=== PATIENT | male | born 1995 | race Caucasian/White ===

== ENCOUNTER 2016-12-12 20:55 | Emergency (ER) | payer BC, MEDICAID, OTHER ==
--- NOTE | 2016-12-12 21:09 | EDM.PDOC ---
ED HPI GENERAL MEDICAL PROBLEM - General Chief Complaint: Back Pain or Injury Stated Complaint: CHEST PAIN/TROUBLE BREATHING Time Seen by Provider: 12/12/16 21:00 Source of Information: Reports: Patient History Limitations: Reports: No Limitations - History of Present Illness INITIAL COMMENTS - FREE TEXT/NARRATIVE: HISTORY AND PHYSICAL: History of present illness: [Patient comes to the emergency room complaining of left upper back pain which has been present for the past 5 days. His symptoms started as a feeling of tightness in his left upper back for a couple of days. Over the past few days the pain has gradually worsened but tonight the pain became severe. He has increased pain with taking a deep breath, coughing, sneezing. he tried Advil a few days ago which had provided some improvement in the tight feeling. He has not taken Advil in the past couple of days. Describes the pain as a sharp feeling on the left side of his upper back between scapula and spine and remains constant. He does hard manual labor on oil rigs. He initially attributed his pain to his work, at first. Has a history of cocaine use but has not used in over a year. Drinks alcohol very occasionally. He does not smoke but he chews tobacco. Patient's parents are living. his father's medical history is unknown to him. His mother has a brain condition which he states is not cancer. He does not know her diagnosis. Maternal uncle age 32 due to heart attack. No known history of bleeding or clotting disorders. ] Review of systems: As per history of present illness and below otherwise all systems reviewed and negative. Past medical history: As per history of present illness and as reviewed below otherwise noncontributory. Surgical history: As per history of present illness and as reviewed below otherwise noncontributory. Social history: No reported history of drug or alcohol abuse. Family history: As per history of present illness and as reviewed below otherwise noncontributory. Physical exam: HEENT: Atraumatic, normocephalic. Eyes are clear. Oral mucous membranes moist. , throat clear, neck supple, nontender, trachea midline. No lymphadenopathy. Lungs: Clear to auscultation, breath sounds equal bilaterally. No wheezing crackles or rales. Chest is nontender with palpation. Heart: S1S2, regular rate and rhythm. No murmur gallop click or rubs. back: no abnormalities on exam. Nontender w/ palpation. Full ROM of 4 extremities. Abdomen: Soft, nondistended, nontender. Negative for masses guarding or rebound Negative for costovertebral tenderness. Pelvis: Stable nontender. Genitourinary: Deferred. Rectal: Deferred. Extremities: Atraumatic, negative for cords or calf pain. Neurovascular unremarkable. Neuro: Awake, alert, oriented. Motor and sensory unremarkable throughout. Exam nonfocal. Diagnostics: [CBC, CMP, d-dimer, INR/PT, chest x-ray, EKG] Therapeutics: [Toradol 30 mg IV] Impression: [Left upper back pain, musculoskeletal in nature.] Plan: [Discussed with patient that lab findings chest x-ray and EKG are completely normal. Patient is urged to establish care with a local primary care provider and to followup in 3 days. Tylenol alternating with ibuprofen as needed for pain and inflammation. Patient agreement with today's plan all questions are answered and concerns are addressed] Definitive disposition and diagnosis as appropriate pending reevaluation and review of above. Left Upper Back Pain Score (Numeric/FACES): 10 - Related Data Allergies Allergy/AdvReac Type Severity Reaction Status Date / Time No Known Allergies Allergy Verified 12/12/16 20:56 Home Meds: Home Meds . [No Known Home Meds] 12/12/16 [History] Past Medical History - Past Health History Medical/Surgical History: Denies Medical/Surgical History Cardiovascular History: Reports: None Respiratory History: Reports: None Gastrointestinal History: Reports: None Psychiatric History: Reports: None Endocrine/Metabolic History: Reports: None - Infectious Disease History Infectious Disease History: Reports: Chicken Pox - Past Surgical History HEENT Surgical History: Reports: None Cardiovascular Surgical History: Reports: None Respiratory Surgical History: Reports: None Musculoskeletal Surgical History: Reports: None Social & Family History - Family History Family Medical History: Unobtainable HEENT: Reports: None Cardiac: Reports: Other (See Below) Other Cardiac Family History: uncle had heart attack - Tobacco Use Smoking Status *Q: Never Smoker Second Hand Smoke Exposure: No - Alcohol Use Days Per Week of Alcohol Use: 1 Number of Drinks Per Day: 1 Total Drinks Per Week: 1 - Recreational Drug Use Recreational Drug Use: No ED ROS GENERAL - Review of Systems Review Of Systems: ROS reveals no pertinent complaints other than HPI. ED EXAM, UPPER BACK/NECK PAIN - Physical Exam Exam: See Below Course - Vital Signs Last Recorded V/S: Last Vital Signs Temp 97.9 F 12/12/16 22:17 Pulse 84 12/12/16 22:17 Resp 16 12/12/16 22:17 BP 145/84 H 12/12/16 22:17 Pulse Ox 99 12/12/16 22:17 - Orders/Labs/Meds Orders: Active Orders 24 hr Category Date Time Status EKG Documentation Completion [RC] STAT Care 12/12/16 21:07 Active Chest 2V [CR] Stat Exams 12/12/16 21:07 Taken Labs: Laboratory Tests 12/12/16 12/12/16 12/12/16 Range/Units 21:10 21:10 21:10 WBC 8.15 (4.0-11.0) K/uL RBC 5.33 (4.50-5.90) M/uL Hgb 15.8 (13.0-17.0) g/dL Hct 46.5 (38.0-50.0) % MCV 87.2 (80.0-98.0) fL MCH 29.6 (27.0-32.0) pg MCHC 34.0 (31.0-37.0) g/dL RDW Std Deviation 39.4 (28.0-62.0) fl RDW Coeff of Dick 12 (11.0-15.0) % Plt Count 197 (150-400) K/uL MPV 9.40 (7.40-12.00) fL Neut % (Auto) 53.6 (48.0-80.0) % Lymph % (Auto) 35.1 (16.0-40.0) % [place] % (Auto) 7.9 (0.0-15.0) % Eos % (Auto) 2.3 (0.0-7.0) % Baso % (Auto) 1.1 (0.0-1.5) % Neut # (Auto) 4.4 (1.4-5.7) K/uL Lymph # (Auto) 2.9 H (0.6-2.4) K/uL [place] # (Auto) 0.6 (0.0-0.8) K/uL Eos # (Auto) 0.2 (0.0-0.7) K/uL Baso # (Auto) 0.1 (0.0-0.1) K/uL Nucleated RBC % 0.0 /100WBC Nucleated RBCs # 0 K/uL INR (0.86-1.11) D-Dimer, Quantitative (0.0-0.52) mg/LFEU Sodium 139 (136-146) mmol/L Potassium 3.6 (3.5-5.1) mmol/L Chloride 104 (98-110) mmol/L Carbon Dioxide 24 (21-31) mmol/L BUN 15 (6.0-23.0) mg/dL Creatinine 1.1 (0.6-1.5) mg/dL Est Cr Clr Drug Dosing 111.24 mL/min Estimated GFR (MDRD) > 60.0 ml/min Glucose 87 (60-110) mg/dL Calcium 9.2 (8.8-10.8) mg/dL Total Bilirubin 0.3 (0.1-1.5) mg/dL AST 26 (5-40) IU/L ALT 31 (8-54) IU/L Alkaline Phosphatase 85 (40-150) Troponin I < 0.10 (0.0-0.29) NG/ML Total Protein 7.5 (6.0-8.0) g/dL Albumin 4.3 (3.5-5.0) g/dL Globulin 3.2 (2.0-3.5) g/dL Albumin/Globulin Ratio 1.3 (1.3-2.8) 12/12/16 Range/Units 21:35 WBC (4.0-11.0) K/uL RBC (4.50-5.90) M/uL Hgb (13.0-17.0) g/dL Hct (38.0-50.0) % MCV (80.0-98.0) fL MCH (27.0-32.0) pg MCHC (31.0-37.0) g/dL RDW Std Deviation (28.0-62.0) fl RDW Coeff of Dick (11.0-15.0) % Plt Count (150-400) K/uL MPV (7.40-12.00) fL Neut % (Auto) (48.0-80.0) % Lymph % (Auto) (16.0-40.0) % [place] % (Auto) (0.0-15.0) % Eos % (Auto) (0.0-7.0) % Baso % (Auto) (0.0-1.5) % Neut # (Auto) (1.4-5.7) K/uL Lymph # (Auto) (0.6-2.4) K/uL [place] # (Auto) (0.0-0.8) K/uL Eos # (Auto) (0.0-0.7) K/uL Baso # (Auto) (0.0-0.1) K/uL Nucleated RBC % /100WBC Nucleated RBCs # K/uL INR 1.05 (0.86-1.11) D-Dimer, Quantitative 0.25 (0.0-0.52) mg/LFEU Sodium (136-146) mmol/L Potassium (3.5-5.1) mmol/L Chloride (98-110) mmol/L Carbon Dioxide (21-31) mmol/L BUN (6.0-23.0) mg/dL Creatinine (0.6-1.5) mg/dL Est Cr Clr Drug Dosing mL/min Estimated GFR (MDRD) ml/min Glucose (60-110) mg/dL Calcium (8.8-10.8) mg/dL Total Bilirubin (0.1-1.5) mg/dL AST (5-40) IU/L ALT (8-54) IU/L Alkaline Phosphatase (40-150) Troponin I (0.0-0.29) NG/ML Total Protein (6.0-8.0) g/dL Albumin (3.5-5.0) g/dL Globulin (2.0-3.5) g/dL Albumin/Globulin Ratio (1.3-2.8) Meds: Medications Discontinued Medications Generic Name Dose Route Start Last Admin Trade Name Freq PRN Reason Stop Dose Admin Ketorolac Tromethamine 30 mg 12/12/16 21:59 12/12/16 22:08 Toradol IVPUSH 12/12/16 22:00 30 mg ONETIME ONE Administration Departure - Departure Time of Disposition: 22:00 Disposition: Home, Self-Care 01 Condition: good Clinical Impression: Upper back pain on left side - Discharge Information Instructions: Back Pain, Adult Referrals: PCP,None [Primary Care Provider] - Forms: ED Department Discharge Additional Instructions: The following information is given to patients seen in the emergency department who are being discharged to home. This information is to outline your options for follow-up care. We provide all patients seen in our emergency department with a follow-up referral. The need for follow-up, as well as the timing and circumstances, are variable depending upon the specifics of your emergency department visit. If you don't have a primary care physician on staff, we will provide you with a referral. We always advise you to contact your personal physician following an emergency department visit to inform them of the circumstance of the visit and for follow-up with them and/or the need for any referrals to a consulting specialist. The emergency department will also refer you to a specialist when appropriate. This referral assures that you have the opportunity for follow-up care with a specialist. All of these measure are taken in an effort to provide you with optimal care, which includes your follow-up. Under all circumstances we always encourage you to contact your private physician who remains a resource for coordinating your care. When calling for follow-up care, please make the office aware that this follow-up is from your recent emergency room visit. If for any reason you are refused follow-up, please contact the [facility] emergency department at and asked to speak to the emergency department charge nurse. [facility] [address] [place] [id number] establish care with a local provider at the clinic listed above and followup there in 48-72 hours. You may take naproxen 2 tabs twice a day, this is available [id number]. Alternate this with Tylenol every 4 hours as needed for pain. You may apply a heating pad or ice pack which occurs most comfortable. [facility] as needed as discussed. Your lab and radiology results are completely normal and do not indicate any heart or lung problems. - My Orders Last 24 Hours: My Active Orders 12/12/16 21:07 EKG Documentation Completion [RC] STAT Chest 2V [CR] Stat - Assessment/Plan Last 24 Hours: My Active Orders 05/11/17 21:07 EKG Documentation Completion [RC] STAT Chest 2V [CR] Stat
[2016-12-12 21:48] LABS: CHLORIDE,CL 104 mmol/L (98-110); SODIUM,NA 139 mmol/L (136-146)
[2016-12-12] MEDS ORDERED: Ketorolac 30 MG/ML SDV IVPUSH ONE (21:59)
[2016-12-13 00:01] VITALS: BP 145/84
--- NOTE | 2016-12-13 19:49 | CR ---
EXAM DATE: 12/12/16 PATIENT'S AGE: 21 Patient: JEET MONTANEZ Facility: [place], [place] Site . Site : 1995 Study: XRay Chest [id number]/11/2017 9:26:04 PM Ordering Physician: Doctor Barr Final Report: INDICATION: Left-sided pain after coughing. Cough symptoms for 5 days. TECHNIQUE: Chest radiograph 2 views COMPARISON: 11/14/2015. FINDINGS: Cardiovascular and mediastinum: The heart silhouette is normal in size and morphology. The mediastinum is normal in appearance. Lungs and pleural spaces: Both lungs are unremarkable in appearance. No sign of pleural effusion seen. No pneumothorax is identified. Incidental note of an azygos lobe in the right upper lung zone. Bones and soft tissues: No significant findings. IMPRESSION: 1. No acute cardiopulmonary disease is seen. Dictated by Maverick Mulligan MD @ 12/12/2016 9:59:12 PM Dictated by: Maverick Mulligan MD @ 12/12/2016 21:59:27 (Electronic Signature) Report Signed by Proxy. [facility]
== END 2016-12-12 22:21 | disposition home or self-care (01) ==
LOC: MW.ED 20:55
DX: M54.6 Pain in thoracic spine (principal)
CPT/HCPCS: 71020; 80053; 84484; 85025; 85379; 85610; 93005; 96374; 99284; J1885

== ENCOUNTER 2017-04-03 19:18 | Emergency (ER) | payer BC ==
[2017-04-03] MEDS ORDERED: Diphtheria,Pertussis(Acell),Tetanus Vaccine 0.5 ML Syringe IM ONE (19:26)
[2017-04-03] MEDS ORDERED: cefTRIAXone 1,000 MG in Lidocaine 1% 4 ML IM ONE (19:27)
--- NOTE | 2017-04-03 19:28 | EDM.PDOC ---
ED HPI GENERAL MEDICAL PROBLEM - General Chief Complaint: Upper Extremity Injury/Pain Stated Complaint: LACERATION LT HAND/FINGERS Time Seen by Provider: 04/03/17 19:28 Source of Information: Reports: Patient - History of Present Illness INITIAL COMMENTS - FREE TEXT/NARRATIVE: HISTORY AND PHYSICAL: History of present illness: []Patient was at work today, operating a drill and., As fingers became entangled in the drill bit he ended up with lacerations on the second and third digit distal phalanx, x-rays were performed no bony abnormality appreciated. No fever nausea vomiting chills sweats Review of systems: As per history of present illness and below otherwise all systems reviewed and negative. Past medical history: As per history of present illness and as reviewed below otherwise noncontributory. Surgical history: As per history of present illness and as reviewed below otherwise noncontributory. Social history: No reported history of drug or alcohol abuse. Family history: As per history of present illness and as reviewed below otherwise noncontributory. Physical exam: HEENT: Atraumatic, normocephalic, pupils reactive, negative for conjunctival pallor or scleral icterus, mucous membranes moist, throat clear, neck supple, nontender, trachea midline. Lungs: Clear to auscultation, breath sounds equal bilaterally, chest nontender. Heart: S1S2, regular, negative for clicks, rubs, or JVD. Abdomen: Soft, nondistended, nontender. Negative for masses or hepatosplenomegaly. Negative for costovertebral tenderness. Pelvis: Stable nontender. Genitourinary: Deferred. Rectal: Deferred. Extremities: Atraumatic, negative for cords or calf pain. Neurovascular unremarkable. Neuro: Awake, alert, oriented. Cranial nerves II through XII unremarkable. Cerebellum unremarkable. Motor and sensory unremarkable throughout. Exam nonfocal. Diagnostics: []Left hand 3 views Therapeutics: [Tenderness]Status updated 1 g Rocephin IM Wound cleansed and explored #5- 0 4 0 Prolene sutures interrupted on the third digit #2 4-0 Prolene sutures interrupted on the second digit Standard wound care Impression: []Laceration second digit 1.5 cm linear laceration Laceration third digit 2.5 cm S-shaped laceration Definitive disposition and diagnosis as appropriate pending reevaluation and review of above. - Related Data Allergies Allergy/AdvReac Type Severity Reaction Status Date / Time No Known Allergies Allergy Verified 04/03/17 19:21 Home Meds: Home Meds . [No Known Home Meds] 12/12/16 [History] Past Medical History - Past Health History Medical/Surgical History: Denies Medical/Surgical History Cardiovascular History: Reports: None Respiratory History: Reports: None Gastrointestinal History: Reports: None Psychiatric History: Reports: None Endocrine/Metabolic History: Reports: None - Infectious Disease History Infectious Disease History: Reports: None - Past Surgical History HEENT Surgical History: Reports: None Cardiovascular Surgical History: Reports: None Respiratory Surgical History: Reports: None Musculoskeletal Surgical History: Reports: None Social & Family History - Family History Family Medical History: Unobtainable HEENT: Reports: None Cardiac: Reports: Other (See Below) Other Cardiac Family History: uncle had heart attack - Tobacco Use Smoking Status *Q: Current Every Day Smoker Years of Tobacco use: 3 Packs/Tins Daily: 1 Second Hand Smoke Exposure: No - Alcohol Use Days Per Week of Alcohol Use: 1 Number of Drinks Per Day: 1 Total Drinks Per Week: 1 - Recreational Drug Use Recreational Drug Use: No Review of Systems - Review of Systems Review Of Systems: ROS reveals no pertinent complaints other than HPI. ED EXAM, GENERAL - Physical Exam Exam: See Below Course - Vital Signs Last Recorded V/S: Last Vital Signs Temp 36.3 C 04/03/17 19:22 Pulse 79 04/03/17 19:22 Resp 18 04/03/17 19:22 BP 153/90 H 04/03/17 19:22 Pulse Ox 96 04/03/17 19:22 - Orders/Labs/Meds Orders: Active Orders 24 hr Category Date Time Status Vaccines to be Administered [RC] PER UNIT ROUTINE Care 04/03/17 19:27 Active Hand Comp Min 3V Lt [CR] Stat Exams 04/03/17 19:27 Taken Meds: Medications Discontinued Medications Generic Name Dose Route Start Last Admin Trade Name Rosalinda PRN Reason Stop Dose Admin Bacitracin 1 dose 04/03/17 20:17 04/03/17 20:31 Bacitracin Oint 1 Gm TOP 04/03/17 20:18 1 dose ONETIME ONE Administration Diphtheria/Tetanus/Acell Pertussis 0.5 ml 04/03/17 19:26 04/03/17 19:39 Adacel IM 04/03/17 19:27 0.5 ml .ONCE ONE Administration Ceftriaxone Sodium 1,000 mg/ 4 mls @ 4 mls/sec 04/03/17 19:27 04/03/17 19:40 Lidocaine HCl IM 04/03/17 19:28 4 mls/sec ONETIME ONE Administration Lidocaine HCl 20 ml 04/03/17 19:49 04/03/17 20:18 Xylocaine 1% INJECT 04/03/17 19:50 3 ml ONETIME ONE Administration Departure - Departure Time of Disposition: 20:37 Disposition: Home, Self-Care 01 Condition: Good Clinical Impression: Laceration - Discharge Information Referrals: PCP,None [Primary Care Provider] - Forms: ED Department Discharge Additional Instructions: Standard wound care as instructed Keep wound clean and dry for 48 hours Bacitracin Telfa Coban dressings Medication as prescribed Keflex 500 by mouth twice a day #20 no refill Return if fever nausea vomiting chills sweats redness warmth or pus drainage should this develop Return or follow-up with occupational health for Suture removal in 10 days [facility] [place] [address] The following information is given to patients seen in the emergency department who are being discharged to home. This information is to outline your options for follow-up care. We provide all patients seen in our emergency department with a follow-up referral. The need for follow-up, as well as the timing and circumstances, are variable depending upon the specifics of your emergency department visit. If you don't have a primary care physician on staff, we will provide you with a referral. We always advise you to contact your personal physician following an emergency department visit to inform them of the circumstance of the visit and for follow-up with them and/or the need for any referrals to a consulting specialist. The emergency department will also refer you to a specialist when appropriate. This referral assures that you have the opportunity for follow-up care with a specialist. All of these measure are taken in an effort to provide you with optimal care, which includes your follow-up. Under all circumstances we always encourage you to contact your private physician who remains a resource for coordinating your care. When calling for follow-up care, please make the office aware that this follow-up is from your recent emergency room visit. If for any reason you are refused follow-up, please contact the [facility] emergency department at and asked to speak to the emergency department charge nurse. - My Orders Last 24 Hours: My Active Orders 04/03/17 19:27 Vaccines to be Administered [RC] PER UNIT ROUTINE Hand Comp Min 3V Lt [CR] Stat - Assessment/Plan Last 24 Hours: My Active Orders 04/03/17 19:27 Vaccines to be Administered [RC] PER UNIT ROUTINE Hand Comp Min 3V Lt [CR] Stat
[2017-04-03] MEDS ORDERED: Lidocaine 1% 20 ML MDV INJECT ONE (19:49)
[2017-04-03] MEDS ORDERED: Bacitracin Oint 1 GM U/D Packet TOP ONE (20:17)
[2017-04-04 04:22] VITALS: BP 143/85
--- NOTE | 2017-04-04 09:25 | CR ---
EXAM DATE: 04/03/17 PATIENT'S AGE: 21 Patient: JEET MONTANEZ Facility: [place], [place] Site . Site : 1995 Study: XRay Extremity hand [id number]/31/2017 7:42:59 PM Ordering Physician: Doctor Barr Final Report: INDICATION: injury to 3rd and 4th digits TECHNIQUE: 3 views of the left hand COMPARISON: None FINDINGS: Bones: No fractures or bone lesions. Joint spaces: Unremarkable. Soft tissues: Unremarkable. IMPRESSION: No acute abnormality. Dictated by Bradford Wolff MD @ 04/03/2017 7:55:52 PM Dictated by: Bradford Wolff MD @ 04/03/2017 19:56:14 (Electronic Signature) Report Signed by Proxy. [facility]
== END 2017-04-03 20:51 | disposition home or self-care (01) ==
LOC: MW.ED 19:18
DX: S61.211A Laceration without foreign body of left index finger without damage to nail, initial encounter (principal); S61.213A Laceration without foreign body of left middle finger without damage to nail, initial encounter; Z23 Encounter for immunization; W29.8XXA Contact with other powered hand tools and household machinery, initial encounter; Y99.0 Civilian activity done for income or pay
CPT/HCPCS: 12002; 73130; 90471; 90715; 96372; 99283; J0696; 99284

== ENCOUNTER 2017-04-19 02:20 | Emergency (ER) | payer BC ==
[2017-04-19 02:38] VITALS: BP 165/103
--- NOTE | 2017-04-19 02:52 | EDM.PDOC ---
ED HPI GENERAL MEDICAL PROBLEM - General Chief Complaint: Head Injury Stated Complaint: HEAD LACERATION Time Seen by Provider: 04/19/17 02:46 - History of Present Illness INITIAL COMMENTS - FREE TEXT/NARRATIVE: HISTORY AND PHYSICAL: History of present illness: Patient is 21-year-old male presents status post fall she sustained a laceration above his left eye he denies loss of consciousness or other concern he is refusing any treatment or care at this point is awake alert oriented law enforcement is present patient remains adamant refusing any further care. Review of systems: As per history of present illness and below otherwise all systems reviewed and negative. Past medical history: As per history of present illness and as reviewed below otherwise noncontributory. Surgical history: As per history of present illness and as reviewed below otherwise noncontributory. Social history: No reported history of drug or alcohol abuse. Family history: As per history of present illness and as reviewed below otherwise noncontributory. Physical exam: Patient refuses any treatment he is noted to have a moderate depth laceration above his left eye with good hemostasis noted obvious injuries. Diagnostics: Refused Therapeutics: Refused Impression: #1 observation status post fall #2 left facial laceration #3 medically clear for incarceration Definitive disposition and diagnosis as appropriate pending reevaluation and review of above. - Related Data Allergies Allergy/AdvReac Type Severity Reaction Status Date / Time No Known Allergies Allergy Verified 04/19/17 02:30 Home Meds: Home Meds . [No Known Home Meds] 12/12/16 [History] Past Medical History - Past Health History Medical/Surgical History: Denies Medical/Surgical History Cardiovascular History: Reports: None Respiratory History: Reports: None Gastrointestinal History: Reports: None Psychiatric History: Reports: None Endocrine/Metabolic History: Reports: None - Infectious Disease History Infectious Disease History: Reports: None - Past Surgical History HEENT Surgical History: Reports: None Cardiovascular Surgical History: Reports: None Respiratory Surgical History: Reports: None Musculoskeletal Surgical History: Reports: None Social & Family History - Family History Family Medical History: Unobtainable HEENT: Reports: None Cardiac: Reports: Other (See Below) Other Cardiac Family History: uncle had heart attack - Tobacco Use Smoking Status *Q: Unknown Ever Smoked Years of Tobacco use: 3 Packs/Tins Daily: 1 Second Hand Smoke Exposure: No - Alcohol Use Days Per Week of Alcohol Use: 1 Number of Drinks Per Day: 1 Total Drinks Per Week: 1 - Recreational Drug Use Recreational Drug Use: No ED ROS GENERAL - Review of Systems Review Of Systems: ROS reveals no pertinent complaints other than HPI. ED EXAM, HEAD INJURY - Physical Exam Exam: See Below (See dictation) Course - Vital Signs Last Recorded V/S: Last Vital Signs Temp Pulse 105 H 04/19/17 02:20 Resp 18 04/19/17 02:20 BP 165/103 H 04/19/17 02:20 Pulse Ox 98 04/19/17 02:20 Departure - Departure Time of Disposition: 02:50 Disposition: Home, Self-Care 01 Condition: Good Clinical Impression: Medical clearance for incarceration - Discharge Information Referrals: PCP,None [Primary Care Provider] - Additional Instructions: The following information is given to patients seen in the emergency department who are being discharged to home. This information is to outline your options for follow-up care. We provide all patients seen in our emergency department with a follow-up referral. The need for follow-up, as well as the timing and circumstances, are variable depending upon the specifics of your emergency department visit. If you don't have a primary care physician on staff, we will provide you with a referral. We always advise you to contact your personal physician following an emergency department visit to inform them of the circumstance of the visit and for follow-up with them and/or the need for any referrals to a consulting specialist. The emergency department will also refer you to a specialist when appropriate. This referral assures that you have the opportunity for followup care with a specialist. All of these measure are taken in an effort to provide you with optimal care, which includes your followup. Under all circumstances we always encourage you to contact your private physician who remains a resource for coordinating your care. When calling for followup care, please make the office aware that this follow-up is from your recent emergency room visit. If for any reason you are refused follow-up, please contact the [facility] emergency department at and asked to speak to the emergency department charge nurse. Follow-up primary medical doctor 1-2 days return as needed as discussed
== END 2017-04-19 03:11 ==
LOC: MW.ED 02:20
DX: Z02.89 Encounter for other administrative examinations (principal); S01.112A Laceration without foreign body of left eyelid and periocular area, initial encounter; W19.XXXA Unspecified fall, initial encounter
CPT/HCPCS: 99282

== ENCOUNTER 2017-05-23 18:46 | Emergency (ER) | payer BC ==
--- NOTE | 2017-05-23 19:16 | EDM.PDOC ---
ED HPI GENERAL MEDICAL PROBLEM - General Chief Complaint: General Stated Complaint: MEDICAL CLEARANCE Time Seen by Provider: 05/23/17 19:00 Source of Information: Reports: Patient History Limitations: Reports: No Limitations - History of Present Illness INITIAL COMMENTS - FREE TEXT/NARRATIVE: History of present illness: [21-year-old male brought in by law-enforcement for medical clearance. Patient takes Wellbutrin and trazodone and indicated he felt a little dizzy tonight after taking his trazodone otherwise denies any complaints. ] Review of systems: As per history of present illness and below otherwise all systems reviewed and negative. Past medical history: As per history of present illness and as reviewed below otherwise noncontributory. Surgical history: As per history of present illness and as reviewed below otherwise noncontributory. Social history: No reported history of drug or alcohol abuse. Family history: As per history of present illness and as reviewed below otherwise noncontributory. Physical exam: HEENT: Atraumatic, normocephalic, pupils reactive, negative for conjunctival pallor or scleral icterus, mucous membranes moist, throat clear, neck supple, nontender, trachea midline. Lungs: Clear to auscultation, breath sounds equal bilaterally, chest nontender. Heart: S1S2, regular, negative for clicks, rubs, or JVD. Abdomen: Soft, nondistended, nontender. Negative for masses or hepatosplenomegaly. Negative for costovertebral tenderness. Pelvis: Stable nontender. Genitourinary: Deferred. Rectal: Deferred. Extremities: Atraumatic, negative for cords or calf pain. Neurovascular unremarkable. Neuro: Awake, alert, oriented. Cranial nerves II through XII unremarkable. Cerebellum unremarkable. Motor and sensory unremarkable throughout. Exam nonfocal. Other than the subjective complaint of dizziness status post trazodone ingestion Global assessment is benign and patient is stable for incarceration. Diagnostics: [] Therapeutics: [] Impression: [Medical clearance] Plan: [Discharge to law-enforcement] Definitive disposition and diagnosis as appropriate pending reevaluation and review of above. - Related Data Allergies Allergy/AdvReac Type Severity Reaction Status Date / Time No Known Allergies Allergy Verified 05/23/17 19:04 Home Meds: Home Meds . [No Known Home Meds] 12/12/16 [History] Past Medical History - Past Health History Medical/Surgical History: Denies Medical/Surgical History Cardiovascular History: Reports: None Respiratory History: Reports: None Gastrointestinal History: Reports: None Psychiatric History: Reports: Anxiety, Depression Endocrine/Metabolic History: Reports: None - Infectious Disease History Infectious Disease History: Reports: None - Past Surgical History HEENT Surgical History: Reports: None Cardiovascular Surgical History: Reports: None Respiratory Surgical History: Reports: None Musculoskeletal Surgical History: Reports: None Social & Family History - Family History Family Medical History: Noncontributory HEENT: Reports: None Cardiac: Reports: Other (See Below) Other Cardiac Family History: uncle had heart attack - Tobacco Use Smoking Status *Q: Never Smoker Years of Tobacco use: 3 Packs/Tins Daily: 1 Second Hand Smoke Exposure: Yes - Caffeine Use Caffeine Use: Reports: Soda - Alcohol Use Days Per Week of Alcohol Use: 1 Number of Drinks Per Day: 1 Total Drinks Per Week: 1 - Recreational Drug Use Recreational Drug Use: No ED ROS GENERAL - Review of Systems Review Of Systems: See Below (History of present illness) ED EXAM, GENERAL - Physical Exam Exam: See Below (History of present illness) Course - Vital Signs Last Recorded V/S: Last Vital Signs Temp 36.7 C 05/23/17 19:01 Pulse 58 L 05/23/17 19:01 Resp 17 05/23/17 19:01 BP 108/65 05/23/17 19:01 Pulse Ox 94 L 05/23/17 19:01 Departure - Departure Time of Disposition: 19:15 Disposition: DC/Tfer to Court of Law En 21 Condition: Good Clinical Impression: Medical clearance for incarceration - Discharge Information Referrals: PCP,None [Primary Care Provider] - Additional Instructions: The following information is given to patients seen in the emergency department who are being discharged to home. This information is to outline your options for follow-up care. We provide all patients seen in our emergency department with a follow-up referral. The need for follow-up, as well as the timing and circumstances, are variable depending upon the specifics of your emergency department visit. If you don't have a primary care physician on staff, we will provide you with a referral. We always advise you to contact your personal physician following an emergency department visit to inform them of the circumstance of the visit and for follow-up with them and/or the need for any referrals to a consulting specialist. The emergency department will also refer you to a specialist when appropriate. This referral assures that you have the opportunity for follow-up care with a specialist. All of these measure are taken in an effort to provide you with optimal care, which includes your follow-up. Under all circumstances we always encourage you to contact your private physician who remains a resource for coordinating your care. When calling for follow-up care, please make the office aware that this follow-up is from your recent emergency room visit. If for any reason you are refused follow-up, please contact the [facility] Emergency Department at and asked to speak to the emergency department charge nurse. Follow-up with PCP when necessary Return to ED as needed as discussed
[2017-05-23 23:04] VITALS: BP 117/59
== END 2017-05-23 19:22 ==
LOC: MW.ED 18:46
DX: Z02.89 Encounter for other administrative examinations (principal); R42 Dizziness and giddiness
CPT/HCPCS: 99282

== ENCOUNTER 2019-12-04 00:49 | Observation (INO) | payer SELFPAY ==
[2019-12-04] MEDS ORDERED: Sodium Chloride 0.9% 1,000 ML IV ONE ×2 (00:54→03:13)
[2019-12-04] MEDS ORDERED: Ondansetron 4 MG/2 ML SDV IVPUSH ONE (00:55)
[2019-12-04] MEDS ORDERED: Pantoprazole 80 MG in Sodium Chloride 0.9% 20 ML IVPUSH ONE (00:55)
[2019-12-04] MEDS ORDERED: LORazepam 2 MG/ML SDV IVPUSH ONE (00:56)
--- NOTE | 2019-12-04 00:59 | EDM.PDOCBH ---
ED HPI GENERAL MEDICAL PROBLEM - General Chief Complaint: Drug or Alcohol Abuse Stated Complaint: INTOXICATION Time Seen by Provider: 12/04/19 00:53 Source of Information: Reports: Patient - History of Present Illness INITIAL COMMENTS - FREE TEXT/NARRATIVE: Patient is a 24-year-old male brought in by police for altered mental status. Patient acknowledges drinking alcohol and smells like he has been using marijuana. He is complaining of severe abdominal pain. Patient has been vomiting. There is no trauma or injury. Patient is a poor historian secondary to being inebriated. He states his pain is worse with breathing and seems to be in the right upper quadrant. He denies ever having previously similar pain. He denies any medical or surgical history. Onset: Today Location: Reports: Abdomen Quality: Reports: Ache Severity: Severe Improves with: Reports: None Worsens with: Reports: Other (Alcohol) Associated Symptoms: Reports: Shortness of Breath, Other (Shortness of breath secondary to pleuritic pain with deep breath.) - Related Data Allergies Allergy/AdvReac Type Severity Reaction Status Date / Time No Known Allergies Allergy Verified 05/23/17 19:04 Home Meds: Home Meds buPROPion [Wellbutrin] 150 mg PO BID 05/23/17 [History] traZODone 50 mg PO DAILY 05/23/17 [History] Past Medical History - Past Health History Medical/Surgical History: Denies Medical/Surgical History Cardiovascular History: Reports: None Respiratory History: Reports: None Gastrointestinal History: Reports: None Psychiatric History: Reports: Anxiety, Depression Endocrine/Metabolic History: Reports: None - Infectious Disease History Infectious Disease History: Reports: None - Past Surgical History HEENT Surgical History: Reports: None Cardiovascular Surgical History: Reports: None Respiratory Surgical History: Reports: None Musculoskeletal Surgical History: Reports: None Social & Family History - Family History Family Medical History: Noncontributory HEENT: Reports: None Cardiac: Reports: Other (See Below) Other Cardiac Family History: uncle had heart attack - Caffeine Use Caffeine Use: Reports: Soda ED ROS GENERAL - Review of Systems Review Of Systems: Unable To Obtain Reason Not Obtained: Inebriated and severe pain Constitutional: Denies: Fever, Chills, Diaphoresis ED EXAM, BEHAVIORAL HEALTH - Physical Exam Exam: See Below Exam Limited By: Intoxication General Appearance: Obtunded Ears: Normal External Exam Nose: Normal Inspection Throat/Mouth: Normal Inspection Head: Atraumatic, Normocephalic Neck: Normal Inspection, Supple, Non-Tender Respiratory/Chest: No Respiratory Distress, Lungs Clear, Normal Breath Sounds, No Accessory Muscle Use, Chest Non-Tender Cardiovascular: Regular Rate, Rhythm, No Edema, No JVD GI/Abdominal: No Organomegaly, No Distention, Tender, Abnormal Bowel Sounds, Other (Recent abdominal bowel sounds. Patient is tender in his epigastric and right upper quadrant.) Back Exam: Normal Inspection. No: CVA Tenderness (L), CVA Tenderness (R) Extremities: Normal Inspection, Normal Range of Motion, Non-Tender, No Pedal Edema, Normal Capillary Refill Neurological: CN II-XII Intact, Slow Response to Commands Psychiatric: Tearful, Agitated Skin Exam: Warm, Dry, Normal color, No rash COURSE, BEHAVIORAL HEALTH COMP - Course Vital Signs: Last Vital Signs Temp 35.7 C L 12/04/19 01:35 Pulse 74 12/04/19 04:34 Resp 16 12/04/19 04:34 BP 107/47 L 12/04/19 04:34 Pulse Ox 97 12/04/19 04:34 Orders, Labs, Meds: Active Orders 24 hr Category Date Time Status Admission Status [Patient Status] [ADT] Stat ADT 12/04/19 04:37 Ordered Laboratory Tests 12/04/19 12/04/19 12/04/19 Range/Units 01:10 01:10 01:10 WBC 10.65 (4.0-11.0) K/uL RBC 5.52 (4.50-5.90) M/uL Hgb 16.4 (13.0-17.0) g/dL Hct 45.7 (38.0-50.0) % MCV 82.8 (80.0-98.0) fL MCH 29.7 (27.0-32.0) pg MCHC 35.9 (31.0-37.0) g/dL RDW Std Deviation 36.9 (28.0-62.0) fl RDW Coeff of Dick 12 (11.0-15.0) % Plt Count 245 (150-400) K/uL MPV 9.60 (7.40-12.00) fL Neut % (Auto) 71.3 (48.0-80.0) % Lymph % (Auto) 20.8 (16.0-40.0) % [place] % (Auto) 6.8 (0.0-15.0) % Eos % (Auto) 0.5 (0.0-7.0) % Baso % (Auto) 0.6 (0.0-1.5) % Neut # (Auto) 7.6 H (1.4-5.7) K/uL Lymph # (Auto) 2.2 (0.6-2.4) K/uL [place] # (Auto) 0.7 (0.0-0.8) K/uL Eos # (Auto) 0.1 (0.0-0.7) K/uL Baso # (Auto) 0.1 (0.0-0.1) K/uL Lactate 4.6 H* (0.20-2.00) mmol/L Sodium 141 (136-148) mmol/L Potassium 3.3 L (3.5-5.1) mmol/L Chloride 103 (98-107) mmol/L Carbon Dioxide 21.7 (21.0-32.0) mmol/L BUN 12 (7.0-18.0) mg/dL Creatinine 1.4 H (0.8-1.3) mg/dL Est Cr Clr Drug Dosing TNP Estimated GFR (MDRD) > 60.0 ml/min Glucose 135 H (74-106) mg/dL Calcium 8.9 (8.5-10.1) mg/dL Total Bilirubin 0.3 (0.2-1.0) mg/dL AST 21 (15-37) IU/L ALT 29 (14-63) IU/L Alkaline Phosphatase 93 (46-116) U/L Total Protein 8.4 H (6.4-8.2) g/dL Albumin 4.5 (3.4-5.0) g/dL Globulin 3.9 (2.6-4.0) g/dL Albumin/Globulin Ratio 1.2 (0.9-1.6) Lipase 155 (73-393) U/L Ethyl Alcohol 159 mg/dL 12/04/19 Range/Units 03:05 WBC (4.0-11.0) K/uL RBC (4.50-5.90) M/uL Hgb (13.0-17.0) g/dL Hct (38.0-50.0) % MCV (80.0-98.0) fL MCH (27.0-32.0) pg MCHC (31.0-37.0) g/dL RDW Std Deviation (28.0-62.0) fl RDW Coeff of Dcik (11.0-15.0) % Plt Count (150-400) K/uL MPV (7.40-12.00) fL Neut % (Auto) (48.0-80.0) % Lymph % (Auto) (16.0-40.0) % [place] % (Auto) (0.0-15.0) % Eos % (Auto) (0.0-7.0) % Baso % (Auto) (0.0-1.5) % Neut # (Auto) (1.4-5.7) K/uL Lymph # (Auto) (0.6-2.4) K/uL [place] # (Auto) (0.0-0.8) K/uL Eos # (Auto) (0.0-0.7) K/uL Baso # (Auto) (0.0-0.1) K/uL Lactate 2.9 H* (0.20-2.00) mmol/L Sodium (136-148) mmol/L Potassium (3.5-5.1) mmol/L Chloride (98-107) mmol/L Carbon Dioxide (21.0-32.0) mmol/L BUN (7.0-18.0) mg/dL Creatinine (0.8-1.3) mg/dL Est Cr Clr Drug Dosing Estimated GFR (MDRD) ml/min Glucose (74-106) mg/dL Calcium (8.5-10.1) mg/dL Total Bilirubin (0.2-1.0) mg/dL AST (15-37) IU/L ALT (14-63) IU/L Alkaline Phosphatase (46-116) U/L Total Protein (6.4-8.2) g/dL Albumin (3.4-5.0) g/dL Globulin (2.6-4.0) g/dL Albumin/Globulin Ratio (0.9-1.6) Lipase (73-393) U/L Ethyl Alcohol mg/dL Medications Discontinued Medications Generic Name Dose Route Start Last Admin Trade Name Freq PRN Reason Stop Dose Admin Fentanyl 50 mcg 12/04/19 01:09 12/04/19 01:22 Fentanyl IVPUSH 12/04/19 01:10 50 mcg ONETIME ONE Administration Pantoprazole Sodium 80 mg/ 20 mls @ 420 mls/hr 12/04/19 00:55 12/04/19 01:20 Sodium Chloride IVPUSH 12/04/19 00:57 420 mls/hr ONETIME ONE Administration Sodium Chloride 1,000 mls @ 999 mls/hr 12/04/19 00:54 12/04/19 01:19 Normal Saline IV 12/04/19 01:54 999 mls/hr .BOLUS ONE Administration Sodium Chloride 1,000 mls @ 999 mls/hr 12/04/19 03:13 12/04/19 03:18 Normal Saline IV 12/04/19 04:13 999 mls/hr .BOLUS ONE Administration Iopamidol 100 ml 12/04/19 02:39 12/04/19 02:41 Isovue-370 (76%) IVPUSH 12/04/19 02:40 100 ml ONETIME ONE Administration Lorazepam 1 mg 12/04/19 00:56 12/04/19 01:18 Ativan IVPUSH 12/04/19 00:57 1 mg ONETIME ONE Administration Ondansetron HCl 4 mg 12/04/19 00:55 12/04/19 01:21 Zofran IVPUSH 12/04/19 00:56 4 mg ONETIME ONE Administration Re-Assessment/Re-Exam: Patient's chest x-ray and CT of his abdomen pelvis showed no acute disease. His initial lactate at 4.6 and 2-hour lactate at 2.9 are his only abnormal labs. Patient still is complaining of right upper quadrant pain. He is much more comfortable after initial dose of fentanyl and lorazepam. He is having pain with any movement. I feel his current symptoms are most likely due to a gastric or duodenal ulcer. Combination of continuing pain with elevated lactate I feel warrants an observation admission. Patient will most likely need an EGD in the near future to establish his peptic ulcer disease or provide another reason for his severe pain. Departure - Departure Time of Disposition: 04:49 Disposition: Refer to Observation Condition: Fair Clinical Impression: Sudden onset of severe abdominal pain, Vomiting, Peptic ulcer disease - Discharge Information Forms: ED Department Discharge Sepsis Event Note - Focused Exam Vital Signs: Vital Signs Temp Pulse Resp BP Pulse Ox 12/04/19 04:34 74 16 107/47 L 97 12/04/19 04:14 81 18 91/44 L 91 L 12/04/19 03:00 72 16 106/62 97 12/04/19 02:45 81 96/45 L 12/04/19 01:35 35.7 C L 82 22 H 97/64 98 Date Exam was Performed: 12/04/19 Time Exam was Performed: 04:40 - My Orders Last 24 Hours: My Active Orders 12/04/19 04:37 Admission Status [Patient Status] [ADT] Stat - Assessment/Plan Last 24 Hours: My Active Orders 12/04/19 04:37 Admission Status [Patient Status] [ADT] Stat
[2019-12-04] MEDS ORDERED: fentaNYL 50 MCG/ML SDV IVPUSH ONE (01:09)
--- NOTE | 2019-12-04 01:42 | CR ---
INDICATION: Chest pain TECHNIQUE: Chest radiograph 1 view COMPARISON: None FINDINGS: Mediastinum: The mediastinum is normal in appearance. The heart silhouette is normal in size and morphology. Lung: Both lungs are unremarkable in appearance. No sign of pleural effusion seen. No pneumothorax is identified. Bone and Soft tissue: Unremarkable for age. IMPRESSION: 1. No acute cardiopulmonary disease is seen. Dictated by: Chuckie Dickinson MD @ 12/04/2019 01:41:31 (Electronically Signed)
[2019-12-04 01:49] LABS: BLOOD UREA NITROGEN,BUN 12 mg/dL (7.0-18.0); CARBON DIOXIDE,CO2 21.7 mmol/L (21.0-32.0); CHLORIDE,CL 103 mmol/L (98-107); GLUCOSE RANDOM 135 mg/dL (74-106); LIPASE 155 U/L (73-393); POTASSIUM,K 3.3 mmol/L (3.5-5.1); SODIUM,NA 141 mmol/L (136-148)
[2019-12-04] MEDS ORDERED: Iopamidol 755 Mg/ML 100 ML Bottle IVPUSH ONE (02:39)
--- NOTE | 2019-12-04 03:07 | CT ---
INDICATION: Right upper quadrant pain, alcohol intoxication TECHNIQUE: CT Abdomen and pelvis with i.v. contrast. Coronal and sagittal reformats were obtained. CONTRAST: 100 mL Isovue 370 COMPARISON: None FINDINGS: Lower chest: Unremarkable. Liver: Unremarkable. Spleen: Unremarkable. Pancreas: Unremarkable. Gallbladder: Unremarkable. Kidney: Unremarkable. No kidney or ureteral stones or obstruction seen. Adrenal: Unremarkable. Bowel: Unremarkable. The appendix is normal in appearance and size. Vascular: Unremarkable. Lymph: Unremarkable. Peritoneum: Unremarkable. No pneumoperitoneum is seen. No significant ascites is noted. Pelvis: Unremarkable. Soft tissue: Unremarkable. Bone: Unremarkable for age. IMPRESSION: 1. Unremarkable with no CT correlate for the patient`s symptoms seen. Dictated by Chuckie Dickinson MD @ 12/04/2019 3:06:59 AM Please note that all CT scans at this facility use dose modulation, iterative reconstruction, and/or weight-based dosing when appropriate to reduce radiation dose to as low as reasonably achievable. Dictated by: Chuckie Dickinson MD @ 12/04/2019 03:07:05 (Electronically Signed)
[2019-12-04] MEDS ORDERED: Sodium Chloride 0.9% 1,000 ML IV SCH (08:15)
[2019-12-04] MEDS ORDERED: Thiamine 100 MG in Sodium Chloride 0.9% 100 ML IV SCH (09:30)
[2019-12-04] MEDS ORDERED: Folic Acid 50 MG/10 ML MDV SUBCUT SCH (09:30)
--- NOTE | 2019-12-04 11:19 | PCM.HP.2 ---
H&P History of Present Illness - General Date of Service: 12/04/19 Admit Problem/Dx: Admission Diagnosis/Problem Admission Diagnosis/Problem Abdominal pain - History of Present Illness Initial Comments - Free Text/Narative: 24 yo male who presented to the ED intoxicated. According to ED physician patient was complaining of right upper quadrant pain. He had an elevated lactic acid of 4.6. CT scan of abdomen was negative. Patient this morning admitted to drinking excessively last night. He states he doesn't drink often but after his kid's birthday republican he drank whiskey and other shots with family. He blacked out and then only remembers waking up this morning. He does remember having some right sided abdominal pain but stated this has resolved. He denies any fevers, blood in stool, or vomiting. Right Upper Abdomen Pain Score (Numeric/FACES): 0 - Related Data Allergies/Adverse Reactions: Allergies Allergy/AdvReac Type Severity Reaction Status Date / Time No Known Allergies Allergy Verified 12/04/19 07:25 Home Medications: Home Meds Pantoprazole Sodium [Protonix] 40 mg PO DAILY #14 tablet. 12/04/19 [Rx] Past Medical History - Past Health History Medical/Surgical History: Denies Medical/Surgical History Cardiovascular History: Reports: None Respiratory History: Reports: None Gastrointestinal History: Reports: None Psychiatric History: Reports: Anxiety, Depression Endocrine/Metabolic History: Reports: None - Infectious Disease History Infectious Disease History: Reports: None - Past Surgical History HEENT Surgical History: Reports: None Cardiovascular Surgical History: Reports: None Respiratory Surgical History: Reports: None Musculoskeletal Surgical History: Reports: None Social & Family History - Family History Family Medical History: Noncontributory HEENT: Reports: None Cardiac: Reports: Other (See Below) Other Cardiac Family History: uncle had heart attack - Tobacco Use Smoking Status *Q: Never Smoker Tobacco Use Comment: Pt is sleeping and intoxicated. - Caffeine Use Caffeine Use: Reports: Soda Caffeine Use Comment: Pt is sleeping and intoxicated. - Recreational Drug Use Recreational Drug Use: Yes Drug Use in Last 12 Months: Yes Recreational Drug Type: Reports: Marijuana/Hashish H&P Review of Systems - Review of Systems: Review Of Systems: Comprehensive ROS is negative, except as noted in HPI. Exam - Exam Exam: See Below - Vital Signs Vital Signs: Last Vital Signs Temp 36.6 C 12/04/19 07:07 Pulse 81 12/04/19 07:07 Resp 16 12/04/19 07:07 BP 139/62 12/04/19 07:07 Pulse Ox 96 12/04/19 07:07 Weight: 8402 kg - Exam General: Alert, Oriented HEENT: Mucosa Moist & [place] Lungs: Clear to Auscultation, Normal Respiratory Effort Cardiovascular: Regular Rate, Regular Rhythm GI/Abdominal Exam: Normal Bowel Sounds, Soft, Non-Tender, No Organomegaly, No Distention Extremities: Normal Inspection, Normal Range of Motion, Non-Tender, No Pedal Edema Skin: Warm, Dry, Intact Neurological: No: Focal Deficit - Patient Data Lab Results Last 24 hrs: Laboratory Results - last 24 hr 12/04/19 12/04/19 12/04/19 Range/Units 01:10 01:10 01:10 WBC 10.65 (4.0-11.0) K/uL RBC 5.52 (4.50-5.90) M/uL Hgb 16.4 (13.0-17.0) g/dL Hct 45.7 (38.0-50.0) % MCV 82.8 (80.0-98.0) fL MCH 29.7 (27.0-32.0) pg MCHC 35.9 (31.0-37.0) g/dL RDW Std Deviation 36.9 (28.0-62.0) fl RDW Coeff of Dick 12 (11.0-15.0) % Plt Count 245 (150-400) K/uL MPV 9.60 (7.40-12.00) fL Neut % (Auto) 71.3 (48.0-80.0) % Lymph % (Auto) 20.8 (16.0-40.0) % [place] % (Auto) 6.8 (0.0-15.0) % Eos % (Auto) 0.5 (0.0-7.0) % Baso % (Auto) 0.6 (0.0-1.5) % Neut # (Auto) 7.6 H (1.4-5.7) K/uL Lymph # (Auto) 2.2 (0.6-2.4) K/uL [place] # (Auto) 0.7 (0.0-0.8) K/uL Eos # (Auto) 0.1 (0.0-0.7) K/uL Baso # (Auto) 0.1 (0.0-0.1) K/uL Lactate 4.6 H* (0.20-2.00) mmol/L Sodium 141 (136-148) mmol/L Potassium 3.3 L (3.5-5.1) mmol/L Chloride 103 (98-107) mmol/L Carbon Dioxide 21.7 (21.0-32.0) mmol/L BUN 12 (7.0-18.0) mg/dL Creatinine 1.4 H (0.8-1.3) mg/dL Est Cr Clr Drug Dosing TNP Estimated GFR (MDRD) > 60.0 ml/min Glucose 135 H (74-106) mg/dL Calcium 8.9 (8.5-10.1) mg/dL Total Bilirubin 0.3 (0.2-1.0) mg/dL AST 21 (15-37) IU/L ALT 29 (14-63) IU/L Alkaline Phosphatase 93 (46-116) U/L Total Protein 8.4 H (6.4-8.2) g/dL Albumin 4.5 (3.4-5.0) g/dL Globulin 3.9 (2.6-4.0) g/dL Albumin/Globulin Ratio 1.2 (0.9-1.6) Lipase 155 (73-393) U/L Ethyl Alcohol 159 mg/dL 12/04/19 12/04/19 Range/Units 03:05 08:15 WBC (4.0-11.0) K/uL RBC (4.50-5.90) M/uL Hgb (13.0-17.0) g/dL Hct (38.0-50.0) % MCV (80.0-98.0) fL MCH (27.0-32.0) pg MCHC (31.0-37.0) g/dL RDW Std Deviation (28.0-62.0) fl RDW Coeff of Dick (11.0-15.0) % Plt Count (150-400) K/uL MPV (7.40-12.00) fL Neut % (Auto) (48.0-80.0) % Lymph % (Auto) (16.0-40.0) % [place] % (Auto) (0.0-15.0) % Eos % (Auto) (0.0-7.0) % Baso % (Auto) (0.0-1.5) % Neut # (Auto) (1.4-5.7) K/uL Lymph # (Auto) (0.6-2.4) K/uL [place] # (Auto) (0.0-0.8) K/uL Eos # (Auto) (0.0-0.7) K/uL Baso # (Auto) (0.0-0.1) K/uL Lactate 2.9 H* 1.6 (0.20-2.00) mmol/L Sodium (136-148) mmol/L Potassium (3.5-5.1) mmol/L Chloride (98-107) mmol/L Carbon Dioxide (21.0-32.0) mmol/L BUN (7.0-18.0) mg/dL Creatinine (0.8-1.3) mg/dL Est Cr Clr Drug Dosing Estimated GFR (MDRD) ml/min Glucose (74-106) mg/dL Calcium (8.5-10.1) mg/dL Total Bilirubin (0.2-1.0) mg/dL AST (15-37) IU/L ALT (14-63) IU/L Alkaline Phosphatase (46-116) U/L Total Protein (6.4-8.2) g/dL Albumin (3.4-5.0) g/dL Globulin (2.6-4.0) g/dL Albumin/Globulin Ratio (0.9-1.6) Lipase (73-393) U/L Ethyl Alcohol mg/dL Result Diagrams: 12/04/19 01:10 12/04/19 01:10 Sepsis Event Note - Evaluation Sepsis Screening Result: No Definite Risk - Focused Exam Vital Signs: Vital Signs Temp Pulse Resp BP Pulse Ox 12/04/19 07:07 36.6 C 81 16 139/62 96 12/04/19 05:25 36.4 C 72 17 115/42 L 95 12/04/19 04:34 74 16 107/47 L 97 12/04/19 04:14 81 18 91/44 L 91 L 12/04/19 03:00 72 16 106/62 97 12/04/19 02:45 81 96/45 L 12/04/19 01:35 35.7 C L 82 22 H 97/64 98 Date Exam was Performed: 12/05/19 Time Exam was Performed: 19:46 Problem List Initiated/Reviewed/Updated: Yes Orders Last 24hrs: Active Orders 24 hr Category Date Time Status Admission Status [Patient Status] [ADT] Stat ADT 12/04/19 04:37 Active Cardiac Monitoring [RC] Q8H Care 12/04/19 06:32 Active Telemetry Monitoring [Cardiac Monitoring] [RC] . Care 12/04/19 06:41 Active DIRECTED Folic Acid Med 12/04/19 09:30 Active 1 mg SUBCUT DAILY Sodium Chloride 0.9% [Normal Saline] 1,000 ml Med 12/04/19 08:15 Active IV ASDIRECTED Thiamine [Vitamin B-1] 100 mg Med 12/04/19 09:30 Active Sodium Chloride 0.9% [Normal Saline] 100 ml IV DAILY Pulse Oximetry Continuous Monitoring [OM.PC] Routine Oth 12/04/19 06:32 Ordered Medication Orders Folic Acid (Folic Acid) 1 mg SUBCUT DAILY [facility] Last Admin: 12/04/19 10:25 Dose: 1 mg Sodium Chloride (Normal Saline) 1,000 mls @ 125 mls/hr IV ASDIRECTED [facility] [place] Last Admin: 12/04/19 08:31 Dose: 125 mls/hr Thiamine HCl 100 mg/ Sodium (Chloride) 101 mls @ 202 mls/hr IV DAILY [facility] [place] Last Admin: 12/04/19 10:21 Dose: 202 mls/hr Assessment/Plan Comment:: 24 yo male admitted for acute alcoholic intoxication. He received 2 liter fluid bolus and his lactic acid has normalized. His CT of his abdomen was normal. His abdominal pain was likely due to acute alcoholic gastritis. Patient plans on abstaining from alcohol in the future. I offered RUQ ultrasound for further work up of his abdominal pain but patient prefers discharge home and outpatient follow up. He is to be discharge home with Protonix prescription and to have follow up with [facility].
[2019-12-04 12:15] VITALS: BP 139/63; PULSE 64
== END 2019-12-04 12:50 | disposition home or self-care (01) ==
LOC: MW.ED 00:49 → MW.MS 04:37
PROVIDERS: ADMIT Internal Medicine; ATTEND Internal Medicine
DX: F10.121 Alcohol abuse with intoxication delirium (principal); R10.13 Epigastric pain; R10.11 Right upper quadrant pain; R74.0 Nonspecific elevation of levels of transaminase and lactic acid dehydrogenase [LDH]; K27.9 Peptic ulcer, site unspecified, unspecified as acute or chronic, without hemorrhage or perforation; F41.9 Anxiety disorder, unspecified; F32.9 Major depressive disorder, single episode, unspecified; Y90.0 Blood alcohol level of less than 20 mg/100 ml
CPT/HCPCS: 36415; 71045; 74177; 80053; 80307; 83605; 83690; 85025; 96361; 96374; 96375; 99285; C9113; J2060; J2405; J3010; J3411; J7030; J7050; Q9967; 99284